=== PATIENT | male | born 1985 | race Hispanic/Latino ===

== ENCOUNTER 2019-08-17 16:59 | Inpatient (IN) | payer OTHER ==
[~2019-08-17] VITALS: Ht 177.8 cm; Wt 97.1 kg
[2019-08-17] MEDS ORDERED: SODIUM CHLORIDE 0.9% 1000ML 1,000 ML IV STA ×2 (17:10→19:24)
[2019-08-17 17:37] LABS: BASOPHILS # (AUTO) 0.1 (0.0-0.1); BASOPHILS % 0.4 % (0.0-1.0); EOSINOPHILS # (AUTO) 0.1 (0.0-0.4); EOSINOPHILS % 0.7 % (0.0-6.0); HEMATOCRIT 38.4 % (38.2-49.6); HEMOGLOBIN 13.4 g/dL (14.0-18.0); LYMPHOCYTES # (AUTO) 1.8 (1.0-3.2); LYMPHOCYTES % 9.8 % (18.0-39.1); MEAN CORPUSCULAR HEMOGLOBIN 28.9 pg (28-32); MEAN CORPUSCULAR HGB CONC 34.9 g/dL (31-35); MEAN CORPUSCULAR VOLUME 82.9 fL (81-99); MONOCYTES # (AUTO) 1.5 (0.2-0.8); MONOCYTES % 8.1 % (4.4-11.3); NEUTROPHILS # (AUTO) 14.4 (2.1-6.9); NEUTROPHILS % 79.9 % (38.7-80.0); PLATELET COUNT 252 x10e3/uL (140-360); RED BLOOD COUNT 4.63 x10e6/uL (4.3-5.7); RED CELL DISTRIBUTION WIDTH 12.7 % (11.7-14.4)
[2019-08-17] MEDS: PIPER-TAZ 3.375 GM 50 ML IV SCH ×2 (17:40→22:45)
[2019-08-17 17:41] LABS: CLARITY,URINE SL CLOUDY (CLEAR)
[2019-08-17 17:42] LABS: BILIRUBIN,URINE NEGATIVE (NEGATIVE); COLOR,URINE STRAW (YELLOW); KETONES,URINE 1+ (NEGATIVE); LEUKOCYTE ESTERASE ,URINE NEGATIVE (NEGATIVE); NITRITE,URINE NEGATIVE (NEGATIVE); PROTEIN,URINE DIPSTICK TRACE (NEGATIVE); URINE UROBILINOGEN 4 mg/dL (0.2 - 1)
[2019-08-17 17:44] LABS: INR 1.03; PROTHROMBIN TIME 14.1 seconds (11.9-14.5)
[2019-08-17 17:45] LABS: PARTIAL THROMBOPLASTIN TIME 34.1 seconds (23.8-35.5)
[2019-08-17 17:52] LABS: ALANINE AMINOTRANSFERASE 93 IU/L (0-55); ALBUMIN 2.9 g/dL (3.5-5.0); ALBUMIN/GLOBULIN RATIO 0.7 (0.8-2.0); ALKALINE PHOSPHATASE 202 IU/L (40-150); ANION GAP 15.8 mmol/L (8-16); BLOOD UREA NITROGEN 12 mg/dL (7-26); BUN/CREATININE RATIO 14 (6-25); CALCIUM 9.5 mg/dL (8.4-10.2); CARBON DIOXIDE 26 mmol/L (22-29); CHLORIDE 96 mmol/L (98-107); CREATININE, SERUM 0.87 mg/dL (0.72-1.25); EST GLOMERULAR FILTRATION RATE > 60 ML/MIN (60-); POTASSIUM 4.8 mmol/L (3.5-5.1); SODIUM 133 mmol/L (136-145)
[2019-08-17 17:54] LABS: GLUCOSE 559 mg/dL (74-118)
[2019-08-17 17:58] LABS: BACTERIA,URINE FEW /HPF; EPITHELIAL CELLS,URINE FEW /LPF; RBC,URINE 0-5 /HPF (0-5)
[2019-08-17] MEDS: VANCOMYCIN 1GM/NS 250 ML 250 ML IV SCH (18:18)
--- NOTE | 2019-08-17 18:36 | Diagnostic Imaging Report ---
Examination: Single AP view of the chest. COMPARISON: None. INDICATION: Abscess on upper back IMPRESSION: 1. Lines and Tubes: None 2. Lungs are grossly clear. No consolidation or effusion. 3. Cardiomediastinal silhouette is normal. Pulmonary vasculature is normal. 4. No acute bony abnormalities. Signed by: Dr. Arthur Casey M.D. on 08/17/2019 6:33 PM
--- NOTE | 2019-08-17 19:11 | NUR ---
No answer from lobby at this time.
[2019-08-17] MEDS ORDERED: MORPHINE SULFATE 2 MG/ML SYR 1ML IV PRN (19:30)
[2019-08-17] MEDS ORDERED: ONDANSETRON HCL INJ 2MG/ML 2ML 2 MG/ML VIAL IV PRN (19:30)
[2019-08-17] MEDS ORDERED: INSULIN LISPRO 100 UNIT/1 ML 3ML VIAL SQ SCH (19:30)
[2019-08-17] MEDS ORDERED: MORPHINE SULFATE INJ 4 MG/ML INJ 1ML IV PRN (19:45)
[2019-08-17] MEDS ORDERED: ACETAMINOPHEN 325 MG TAB PO ONE (19:45)
--- OUTSIDE RECORDS SUMMARY | 2019-08-17 19:57 | XMS REPORT ---
Author Author [facility] Organization [facility] Address Unknown Phone Unavailable Care Team Providers Care Rn Lpn Cna Name Role Phone Wang RITTER Unavailable Unavailable Problems This patient has no known problems. Allergies, Adverse Reactions, Alerts This patient has no known allergies or adverse reactions. Medications This patient has no known medications. Results Test Description Test Time Test Comments Text Results Atomic Results Result Comments CHEST SINGLE (NOT PORTABLE) 2019-08-17 18:33:00 [facility] [address] [place], [place] [address] Patient Name: TATY COLE MR #: [id number] : 1985 Age/Sex: 34/M Req #: [id number] Adm Physician: Ordered by: WERNER RITTER MD Report #: [id number] Location: ER Room/Bed: Procedure: [id number] DX/CHEST SINGLE (NOT PORTABLE) Exam Date: Exam Time: REPORT STATUS: Signed Examination: Single AP view of the chest. COMPARISON: None. INDICATION: Abscess on upper back IMPRESSION: 1. Lines and Tubes: None 2. Lungs are grossly clear. No consolidation or effusion. 3. Cardiomediastinal silhouette is normal. Pulmonary vasculature is normal. 4. No acute bony abnormalities. Signed by: Dr. Natalee Casey M.D. on 08/17/2019 6:33 PM Dictated By: NATALEE CASEY MD 34 Transcribed By: DIDI on 08/17/191832 COPY TO: WERNER RITTER MD
[2019-08-17] MEDS ORDERED: SODIUM CHLORIDE 0.9% 1000ML 1,000 ML IV ONE (20:00)
[2019-08-17] MEDS: SODIUM CHLORIDE 0.9% 1000ML 1,000 ML IV SCH (20:01)
--- NOTE | 2019-08-17 20:28 | NUR ---
New dressing applied to upper back area.
[2019-08-17] MEDS ORDERED: IBUPROFEN 600 MG TAB PO STA (20:52)
[2019-08-17] MEDS: INSULIN GLARGINE 100 UNITS/ML VIAL SQ SCH (21:10)
[2019-08-17] MEDS ORDERED: DEXTROSE 50% SYRINGE 50 ML IV PRN (21:15)
--- NOTE | 2019-08-17 22:00 | NUR ---
Patient received from ED via stretcher as a new admit to room 297. Admitting diagnoses was abscess of back, diabetes new onset. Pt alert and oriented x3. Left upper back with swollen and erythematous abscess with mininal pus drainage and covered with gauze and microfoam tape (C/D/I). Pt denies pain at this time. Ambulatory in room prn. On 2L NC. On IVF (NS at 125ml/hr). On scheduled IV antibiotics. NPO at midnight per MD order. Call flores within reach.
[2019-08-17 22:36] VITALS: BP 131/71
[2019-08-17] MEDS: INSULIN REGULAR, HUMAN 100 UNIT/1 ML 3ML VIAL SQ SCH (22:43)
[2019-08-17 23:00] VITALS: BP 131/71
[2019-08-17 23:20] VITALS: BP 131/63
--- NOTE | 2019-08-17 23:28 | History and Physical ---
HISTORY OF PRESENT ILLNESS: This is a 34-year-old gentleman with a history of left shoulder abscess which started about 2 days prior to admission. The patient did notice some kind of pain and an erythematous area which progressed rapidly into an abscess. The patient was brought here by his had no past medical history. No awareness of his blood sugars being high. PAST MEDICAL HISTORY: Noncontributory. PAST SURGICAL HISTORY: Noncontributory. FAMILY HISTORY: Positive for diabetes in both sides of the family. Father has passed on with history of diabetes and renal failure. Mother with diabetes mellitus currently and is on insulin. SOCIAL HISTORY: No IV drug abuse. Smoking very sparingly and also ETOH very sparingly. No drug abuse. REVIEW OF SYSTEMS: Negative for chest pain. Positive for some blurry vision. Positive for shortness of breath. No nausea. No vomiting. No diarrhea. No constipation. No rectal bleeding. No hematochezia. No hematemesis. The patient also complains of some paresthesias and hyperesthesias in the right lower extremities otherwise normal. PHYSICAL EXAMINATION: GENERAL: The patient is alert and oriented x3. VITAL SIGNS: Blood pressure is elevated, tachycardic. HEENT: Normocephalic, atraumatic. Pupils are reactive to light and accommodation. CVS: S1 and S2, tachy. ABDOMEN: Nontender nondistended. EXTREMITIES: No clubbing, no cyanosis, no edema. Decreased sensation in the right lower extremity. SKIN AND INTEGUMENTARY SYSTEM: The patient has a left-sided shoulder abscess with some drainage present. Abscess size is about 1.5 inches to 2 inches in diameter, tender endurant and also with erythema surrounding it. ASSESSMENT: 1. Mr. León Kelly with new onset diabetes mellitus. 2. Abscess of the left shoulder area. 3. Hypertension. 4. Tachycardia. 5. Cellulitis of the left shoulder. PLAN: Continue with Zosyn and vancomycin. We will continue to monitor the patient. A consult with Dr. Trevizo has been done. He needs surgical debridement of the abscess or incision and drainage. Start the patient on Lantus 15 units insulin sliding scale has been done. The patient has gotten 2 units of fluids right now. We will start him on 125 mL of normal saline. Check his labs in the morning. Further recommendation and clinical course. For right now, we will keep him n.p.o. just in case the patient needs to be taken for I and D. For further information, look in the chart. MD YOEL Allen/MODL /[id number]
[2019-08-18] VITALS (9 sets, daily range): BP systolic 106–142; BP diastolic 61–87
[2019-08-18] MEDS: SODIUM CHLORIDE 0.9% 1000ML 1,000 ML IV SCH ×3 (04:55→20:05)
[2019-08-18] MEDS: PIPER-TAZ 3.375 GM 50 ML IV SCH ×4 (04:56→23:18)
[2019-08-18 06:15] LABS: BASOPHILS # (AUTO) 0.1 (0.0-0.1); BASOPHILS % 0.4 % (0.0-1.0); EOSINOPHILS # (AUTO) 0.3 (0.0-0.4); EOSINOPHILS % 1.5 % (0.0-6.0); HEMATOCRIT 36.5 % (38.2-49.6); HEMOGLOBIN 12.2 g/dL (14.0-18.0); LYMPHOCYTES # (AUTO) 1.2 (1.0-3.2); LYMPHOCYTES % 7.5 % (18.0-39.1); MEAN CORPUSCULAR HEMOGLOBIN 28.7 pg (28-32); MEAN CORPUSCULAR HGB CONC 33.4 g/dL (31-35); MEAN CORPUSCULAR VOLUME 85.9 fL (81-99); MONOCYTES # (AUTO) 1.6 (0.2-0.8); MONOCYTES % 9.6 % (4.4-11.3); PLATELET COUNT 218 x10e3/uL (140-360); RED BLOOD COUNT 4.25 x10e6/uL (4.3-5.7); RED CELL DISTRIBUTION WIDTH 12.9 % (11.7-14.4)
--- NOTE | 2019-08-18 06:15 | NUR ---
Received call back from Dr. Trevizo to notify of new consult order for patient. Reason for consult: Abscess of back.
[2019-08-18] MEDS: VANCOMYCIN 1GM/NS 250 ML 250 ML IV SCH ×2 (06:22→18:30)
[2019-08-18 06:38] LABS: ALANINE AMINOTRANSFERASE 120 IU/L (0-55); ALBUMIN 2.2 g/dL (3.5-5.0); ALBUMIN/GLOBULIN RATIO 0.6 (0.8-2.0); ALKALINE PHOSPHATASE 187 IU/L (40-150); ANION GAP 10.9 mmol/L (8-16); BLOOD UREA NITROGEN 12 mg/dL (7-26); BUN/CREATININE RATIO 18 (6-25); CALCIUM 8.5 mg/dL (8.4-10.2); CARBON DIOXIDE 24 mmol/L (22-29); CHLORIDE 107 mmol/L (98-107); CREATININE, SERUM 0.68 mg/dL (0.72-1.25); EST GLOMERULAR FILTRATION RATE > 60 ML/MIN (60-); GLUCOSE 301 mg/dL (74-118); POTASSIUM 3.9 mmol/L (3.5-5.1); SODIUM 138 mmol/L (136-145)
[2019-08-18 07:01] LABS: CHOL/HDL RATIO 8.9 (3.9-4.7)
[2019-08-18] MEDS: INSULIN REGULAR, HUMAN 100 UNIT/1 ML 3ML VIAL SQ SCH ×4 (07:30→20:10)
--- NOTE | 2019-08-18 07:30 | NUR ---
PT IN BED RESTING NO DISTRESS NOTED,
--- NOTE | 2019-08-18 09:45 | NUR ---
DR BROWN HERE ORDERS WRITTEN,CULTURES SENT TO LAB
--- NOTE | 2019-08-18 11:00 | Consultation ---
DATE OF CONSULTATION: 08/18/2019 CHIEF COMPLAINT: Back pain. HISTORY OF PRESENT ILLNESS: The patient is a 34-year-old male with history of diabetes, complaining of one week history of progressive swelling and redness in the upper back, which the patient thought due to an insect bite. He had some chills and fevers. No vomiting. PAST MEDICAL HISTORY: As mentioned is positive for diabetes. PAST SURGICAL HISTORY: Negative. ALLERGIES: HE HAS NO DRUG ALLERGIES. SOCIAL HABITS: He does not smoke or drink. REVIEW OF SYSTEMS: No chest pain or shortness of breath. PHYSICAL EXAMINATION: VITAL SIGNS: Stable. He is afebrile. T-max 101. GENERAL: He is awake and alert, in moderate discomfort. HEENT: Sclerae anicteric. NECK: Supple. LUNGS: Clear. HEART: Regular rate and rhythm. ABDOMEN: Soft. BACK: Upper back show a large 5 x 5 cm area of erythema, induration, and tenderness consistent with abscess formation. LABORATORY DATA: White cell count 16 and hemoglobin of 12. Creatinine 0.6. ASSESSMENT: Back abscess. PLAN: Incision and drainage of back abscess under anesthesia. Attendant risks discussed. Johnson Trevizo MD DNL/MODL /[id number]
--- NOTE | 2019-08-18 11:50 | NUR ---
PT TRANSPORTED TO OR VIA BED STABLE CONDITION.
[2019-08-18] MEDS ORDERED: INSULIN REGULAR, HUMAN 100 UNIT/1 ML 3ML VIAL ONE (12:22)
[2019-08-18] MEDS ORDERED: BUPIVACAINE HCL 0.5% INJ 30 ML VIAL INJ ONE (13:09)
--- NOTE | 2019-08-18 13:53 | NUR ---
Nutrition Screen Note RD Recommendation for Physician: - When feasible, ADAT to goal of 1800 ADA Plan of Care: RD following, monitoring for tolerance and adequacy Diet education provided 08/18. Nutrition reason for involvement: Dx: new onset DM Primary Diagnose(s): abscess L shoulder, new onset DM PMH: no PMH reported Ht: 70 in Wt: 214.01 lb BMI: 30.7 kg/m2 IBW: [address] Assessment: (08/18) 34 YOM admitted for abscess to L shoulder found to have new onset DM II with no reported PMH. Pt seen today per dx screen. Pt reports good appetite and intake [employer]. Pt reports minor wt loss of 6# within the past month unintentionally, no significant change noted. Pt denies any N/V/C/D. Pt and receptive to diet education at time of visit. Pt and educated on CHO sources, CHO counting and serving sizes, meal planning, foods to avoid, snacks, beverages, and sugar substitutes. All questions and concerns addressed at time of visit. Chart reviewed. Labs and meds reviewed, noted A1C of 13.1 on admit and TG of 322. Pt now on insulin. Pt to remains NPO 2/2 possible I&D of shoulder. Will continue to monitor. Current Diet: NPO Malnutrition Evaluation (08/18/19) The patient does not meet criteria for a specified degree of malnutrition at this time. Will re-evaluate at follow-up as appropriate. Diet Education Needs Assessment: Diet education indicated, pt receptive and education provided 08/18. Learner(s): pt, pt's Barriers: none Cultural/Language Modifications: none Readiness: ready Method: handouts, discussion Topics: DM2 nutrition therapy, CHO sources, CHO counting, meal planning, foods to avoid Understanding/Compliance: fair Diet tolerance: tolerance pending Nutrition Care Level: low Signed: Virginie Rivero RD, LD, [facility]
--- NOTE | 2019-08-18 14:55 | NUR ---
PT RETURNED TO ROOM VIA BED, DENIES PAIN,DRSG TO BACK CD&I
--- NOTE | 2019-08-18 16:30 | NUR ---
GLUCOSE 246 S/S INSULIN GIVEN ORDERED
--- NOTE | 2019-08-18 17:31 | NUR ---
PT UP IN BED PAIN LEVEL 3 ,TIMMY CD&I,
[2019-08-18] MEDS ORDERED: ONDANSETRON HCL INJ 2MG/ML 2ML 2 MG/ML VIAL ONE (18:39)
[2019-08-18] MEDS ORDERED: PROPOFOL IV EMULSION 10 MG/ML 20 ML VIAL ONE (18:39)
[2019-08-18] MEDS ORDERED: SEVOFLURANE INHAL SOLN 250 ML PEN BTL ONE (18:39)
[2019-08-18] MEDS ORDERED: DEXAMETHASONE SOD PHOS INJ 4 MG/ML VIAL ONE (18:39)
[2019-08-18] MEDS ORDERED: LIDOCAINE HCL 2% LOCAL INJ 5 ML SDV VIAL INJ ONE (18:39)
[2019-08-18] MEDS ORDERED: MIDAZOLAM HCL 2 MG/2 ML VIAL ONE (19:10)
[2019-08-18] MEDS ORDERED: FENTANYL CITRATE/PF 100MCG/2 ML INJ ONE (19:10)
--- NOTE | 2019-08-18 19:20 | NUR ---
Patient visited in room during nursing rounds. Patient alert and oriented x3. No distress or discomfort noted. S/P Incision and drainage on left upper back abscess today. Site covered with surgical gauze and microfoam tape appearing clean and dry. On IVF (NS at 125ml/hr) and scheduled IV antibiotics. Call flores within reach. Will monitor pt closely.
--- NOTE | 2019-08-18 19:33 | Operative Report ---
DATE OF PROCEDURE: 08/18/2019 SURGEON: Johnson Trevizo MD PREOPERATIVE DIAGNOSIS: Back abscess. POSTOPERATIVE DIAGNOSIS: Back abscess. OPERATIVE PROCEDURE: I and D back abscess. ANESTHESIA: General. INDICATION: A 34-year-old male with 1-week history of back swelling and redness consistent with abscess formation. The patient consented for incision and drainage. Attendant risks discussed. DESCRIPTION OF PROCEDURE: The patient was brought to the OR intubated. He was repositioned to the right lateral with the left side up. Upper back was prepped with alcohol and draped in sterile fashion. A cruciate incision was made 4 x 4 cm in size extending deep into the abscess cavity and thick purulent material was evacuated and swab specimen obtained for culture and sensitivity. Digital exploration of the cavity carried out to break up all loculations, which was then irrigated with saline solution. The wound was then packed with iodoform gauze. Hemostasis achieved. Dressing applied. The patient tolerated the procedure well and was extubated. BLOOD LOSS: 5 mL. Johnson Trevizo MD DNL/MODL /[id number]
[2019-08-18] MEDS: ACETAMINOPHEN 325 MG TAB PO PRN ×2 (19:45)
[2019-08-18] MEDS: INSULIN GLARGINE 100 UNITS/ML VIAL SQ SCH (20:10)
--- NOTE | 2019-08-18 20:54 | Progress Note ---
DATE: SUBJECTIVE: The patient is a 34-year-old male with new onset diabetes mellitus with high glucose and abscess in the right shoulder, came in with sepsis. The patient is currently having status post incision and drainage. Pain is controlled. The patient is also on insulin with sugars running in the 200s. OBJECTIVE: VITAL SIGNS: Temperature is 99.6, T-max of 101.1 yesterday at 8:24 in the morning. The patient's pulse is 128, respiration of 20, blood pressure is 135/81, pulse ox of 96%. HEENT: Normocephalic, atraumatic. CVS: S1 and S2 normal. Regular rate and rhythm. ABDOMEN: Nontender, nondistended. BACK: Left shoulder area packed and also has pressure dressing on it. EXTREMITIES: No clubbing, no cyanosis, no edema. [place]: [place] [address] today, hemoglobin 12.2, hematocrit of 36.5. Chemistry; sodium of 138, potassium 3.9, glucose is 301. ALT and AST of 87 and 120. Glucoses have been running in the 250 range. A1c was 13.1. ASSESSMENT: Mr. Sin Wing with: 1. Uncontrolled diabetes mellitus. 2. Abscess of the back, left shoulder area. 3. Hypertension. 4. Tachycardia. 5. Cellulitis. 6. Sepsis. PLAN: Continue on Zosyn at this time. The patient has already had surgery done by Dr. Trevizo and the patient's culture has been sent. Continue to monitor the patient. Insulin Lantus 15 units twice a day has been started and also sliding scale has been started. Further recommendation per clinical course. We will follow up with the cultures. Blood cultures show no growth in 24 hours. Shravan Linares MD ASJ/MODL /[id number]
--- NOTE | 2019-08-18 21:35 | NUR ---
Called and spoke with Dr. Linares via phone and informed patient still running fever (temp = 101.8 F) even after receiving Tylenol. aware and ordered Motrin 600mg Q6hr prn.
[2019-08-18] MEDS ORDERED: IBUPROFEN 600 MG TAB PO PRN (21:45)
[2019-08-19] VITALS (8 sets, daily range): BP systolic 113–147; BP diastolic 70–96
[2019-08-19] MEDS: SODIUM CHLORIDE 0.9% 1000ML 1,000 ML IV SCH ×2 (04:43→17:29)
[2019-08-19] MEDS: PIPER-TAZ 3.375 GM 50 ML IV SCH ×4 (04:48→22:57)
[2019-08-19] MEDS: VANCOMYCIN 1GM/NS 250 ML 250 ML IV SCH ×2 (05:59→18:00)
[2019-08-19 06:15] LABS: BASOPHILS # (AUTO) 0.1 (0.0-0.1); BASOPHILS % 0.5 % (0.0-1.0); EOSINOPHILS # (AUTO) 0.3 (0.0-0.4); EOSINOPHILS % 1.7 % (0.0-6.0); HEMATOCRIT 34.7 % (38.2-49.6); HEMOGLOBIN 11.5 g/dL (14.0-18.0); LYMPHOCYTES # (AUTO) 1.5 (1.0-3.2); LYMPHOCYTES % 9.1 % (18.0-39.1); MEAN CORPUSCULAR HEMOGLOBIN 28.3 pg (28-32); MEAN CORPUSCULAR HGB CONC 33.1 g/dL (31-35); MEAN CORPUSCULAR VOLUME 85.5 fL (81-99); MONOCYTES # (AUTO) 1.3 (0.2-0.8); MONOCYTES % 7.9 % (4.4-11.3); NEUTROPHILS # (AUTO) 12.9 (2.1-6.9); NEUTROPHILS % 79.3 % (38.7-80.0); PLATELET COUNT 255 x10e3/uL (140-360); RED BLOOD COUNT 4.06 x10e6/uL (4.3-5.7); RED CELL DISTRIBUTION WIDTH 13.2 % (11.7-14.4)
--- NOTE | 2019-08-19 06:56 | NUR ---
RECEIVED BEDSIDE SHIFT REPORT FROM OFF GOING NURSE. PATIENT IS RESTING IN BED. NO ACUTE DISTRESS NOTED. CALL LIGHT WITHIN REACH. BED IN THE LOWEST POSITION.
[2019-08-19 06:57] LABS: ANION GAP 11.9 mmol/L (8-16); BLOOD UREA NITROGEN 11 mg/dL (7-26); BUN/CREATININE RATIO 17 (6-25); CALCIUM 8.6 mg/dL (8.4-10.2); CARBON DIOXIDE 23 mmol/L (22-29); CHLORIDE 106 mmol/L (98-107); CREATININE, SERUM 0.65 mg/dL (0.72-1.25); EST GLOMERULAR FILTRATION RATE > 60 ML/MIN (60-); GLUCOSE 238 mg/dL (74-118); POTASSIUM 3.9 mmol/L (3.5-5.1); SODIUM 137 mmol/L (136-145)
[2019-08-19] MEDS: INSULIN REGULAR, HUMAN 100 UNIT/1 ML 3ML VIAL SQ SCH ×4 (08:19→20:15)
--- NOTE | 2019-08-19 09:36 | Progress Note ---
DATE: SUBJECTIVE: The patient is a 34-year-old gentleman, who came in with a left shoulder abscess or back abscess, status post incision and drainage. Currently on Zosyn and vancomycin. The patient has no chest pain or shortness of breath. No nausea, vomiting, or diarrhea. Pain continues. OBJECTIVE: VITAL SIGNS: Temperature is 98, pulse of 98, T-max of 102, respirations of 18, pulse oximeter of 96%. HEENT: Normocephalic and atraumatic. Pupils are equal, reactive to light and accommodation. CVS: S1 and S2 normal. Regular rate and rhythm. ABDOMEN: Nontender, nondistended. LUNGS: Clear to auscultation. BACK: Packed. EXTREMITIES: No clubbing. No cyanosis. No edema. MICROBIOLOGY: Gram stain wound culture is showing gram-positive cocci in pairs. Blood cultures are otherwise negative. IMAGING STUDIES: Chest x-ray was normal on . ASSESSMENT: Mr. Wing with: 1. Uncontrolled diabetes mellitus. 2. Abscess of the back with gram-positive cocci, possibly Staph. 3. Hypertension. 4. Tachycardia. 5. Cellulitis. 6. Sepsis. PLAN: ID consult with Dr. Ricci, Dr. Trevizo is on consult, probably will need further studies, especially echocardiogram. Continue to monitor the patient. Vancomycin trough to be done. Further recommendation as per clinical course. We will continue to monitor the patient. MD YOEL Allen/YANNICKL /[id number]
[2019-08-19] MEDS: ACETAMINOPHEN 325 MG TAB PO PRN ×2 (09:40→20:13)
--- NOTE | 2019-08-19 19:20 | NUR ---
Patient visited in room during nursing rounds. Patient alert and oriented x3. No distress or discomfort noted. S/P Incision and drainage on left upper back abscess yesterday. Site covered with surgical gauze and microfoam tape appearing clean and dry. On IVF (NS at 125ml/hr) and scheduled IV antibiotics. Call flores within reach. Will monitor pt closely.
--- NOTE | 2019-08-19 19:38 | NUR ---
Bedside shift report given to oncoming nurse. Patient is resting in bed, no acute distress noted. Family member at bedside. Call light within reach. Bed in the lowest position.
--- NOTE | 2019-08-19 19:54 | NUR ---
Dr. Ricci came and saw pt in room. MD aware of patient condition. MD just gave order to check Vanc trough prior to every 4 doses.
[2019-08-19] MEDS: INSULIN GLARGINE 100 UNITS/ML VIAL SQ SCH (20:15)
[2019-08-20] VITALS (8 sets, daily range): BP systolic 121–142; BP diastolic 70–96
--- NOTE | 2019-08-20 03:14 | Consultation ---
DATE OF CONSULTATION: REASON FOR CONSULTATION: Abscess of the back. HISTORY OF PRESENT ILLNESS: This patient is a very pleasant 34-year-old with history of diabetes mellitus and history of obesity, comes in with an abscess on his back started few days ago. The patient does have redness and swelling. The patient came to emergency room. He was seen by surgery already had I and D, I was asked to see him. PAST MEDICAL HISTORY: Diabetes mellitus with obesity. PAST SURGICAL HISTORY: Denies. ALLERGIES: NKA. SOCIAL HISTORY: There is no smoking, drug abuse, or alcohol abuse. FAMILY HISTORY: Significant for diabetes mellitus. PAST MEDICAL HISTORY: This diabetes mellitus was diagnosed with this visit. The patient was not aware of that before he came here. LABORATORY DATA: His wound culture is showing gram positive, showing Staphylococcus aureus, sensitivity is still pending. His blood cultures are negative. His laboratory data when he first came, his white count was 17.99, hemoglobin 13 and 38. Sodium 137, potassium 3.9 with creatinine of 0.65. He is currently on vancomycin and Zosyn. PHYSICAL EXAMINATION: GENERAL: He is currently alert and oriented, does not seem in acute distress. VITAL SIGNS: Stable, currently afebrile. HEENT: Not icteric. NECK: Supple. CHEST: Clear bilateral. HEART: S1 and S2. No S3, S4, or murmur. ABDOMEN: Soft. Bowel sounds present tenderness. EXTREMITIES: No edema. IMPRESSION AND PLAN: 1. Abscess of the back Staphylococcus aureus. Agree with vancomycin and agree with Zosyn. Obtain vancomycin trough. 2. Diabetes mellitus. 3. Obesity. 4. Continue with local care. Recheck CBC. We will keep on IV antibiotic till we normalize. Further recommendation depending on his clinical progress. 5. Recheck CBC. Recheck Chem panel. Follow vancomycin trough. Follow up with the cultures. MD JOSE ROBERTO Yang/ISAC /[id number]
[2019-08-20] MEDS: PIPER-TAZ 3.375 GM 50 ML IV SCH ×2 (05:50→10:30)
[2019-08-20] MEDS: SODIUM CHLORIDE 0.9% 1000ML 1,000 ML IV SCH (05:50)
[2019-08-20 06:17] LABS: BASOPHILS # (AUTO) 0.1 (0.0-0.1); BASOPHILS % 0.6 % (0.0-1.0); EOSINOPHILS # (AUTO) 0.4 (0.0-0.4); EOSINOPHILS % 2.9 % (0.0-6.0); HEMATOCRIT 31.9 % (38.2-49.6); HEMOGLOBIN 10.6 g/dL (14.0-18.0); LYMPHOCYTES # (AUTO) 1.9 (1.0-3.2); LYMPHOCYTES % 15.2 % (18.0-39.1); MEAN CORPUSCULAR HEMOGLOBIN 28.3 pg (28-32); MEAN CORPUSCULAR HGB CONC 33.2 g/dL (31-35); MEAN CORPUSCULAR VOLUME 85.3 fL (81-99); MONOCYTES # (AUTO) 0.9 (0.2-0.8); MONOCYTES % 7.6 % (4.4-11.3); NEUTROPHILS # (AUTO) 8.7 (2.1-6.9); NEUTROPHILS % 70.8 % (38.7-80.0); PLATELET COUNT 273 x10e3/uL (140-360); RED BLOOD COUNT 3.74 x10e6/uL (4.3-5.7); RED CELL DISTRIBUTION WIDTH 13.2 % (11.7-14.4)
[2019-08-20 06:45] LABS: ANION GAP 9.7 mmol/L (8-16); BLOOD UREA NITROGEN 10 mg/dL (7-26); BUN/CREATININE RATIO 17 (6-25); CALCIUM 8.3 mg/dL (8.4-10.2); CARBON DIOXIDE 25 mmol/L (22-29); CHLORIDE 104 mmol/L (98-107); EST GLOMERULAR FILTRATION RATE > 60 ML/MIN (60-); GLUCOSE 214 mg/dL (74-118); POTASSIUM 3.7 mmol/L (3.5-5.1); SODIUM 135 mmol/L (136-145)
[2019-08-20] MEDS: VANCOMYCIN 1GM/NS 250 ML 250 ML IV SCH (06:51)
--- NOTE | 2019-08-20 06:58 | NUR ---
RECEIVED BEDSIDE SHIFT REPORT FROM OFF GOING NURSE. PATIENT IS RESTING IN BED, NO ACUTE DISTRESS NOTED. CALL LIGHT WITHIN REACH. BED IN THE LOWEST POSITION.
[2019-08-20] MEDS: INSULIN REGULAR, HUMAN 100 UNIT/1 ML 3ML VIAL SQ SCH ×4 (08:01→21:00)
[2019-08-20] MEDS: CLINDAMYCIN 600MG / 50ML 50 ML IV SCH (17:25)
--- NOTE | 2019-08-20 17:55 | Progress Note ---
DATE: SUBJECTIVE: Mr. Traore is doing better. There is no new complaint. The wound on his back is healing. There is minimal drainage. His cultures grew Staphylococcus aureus which seems to be MSSA. PHYSICAL EXAMINATION: Otherwise alert, oriented, does not seem to be in acute distress. IMPRESSION: 1. Abscess, MSSA. 2. Diabetes, newly diagnosed. RECOMMENDATION: We will discontinue vancomycin. We will discontinue Zosyn. We will put him on clindamycin, can discharge home with oral clindamycin 300 mg p.o. t.i.d. for 2 weeks in addition to wound care. Diabetes controlled. He is still having issues with his diabetes. Discussed with the patient. Discussed with the family. Discussed with the medical team. MD JOSE ROBERTO Yang/MODKip /[id number]
--- NOTE | 2019-08-20 18:05 | Progress Note ---
DATE: SUBJECTIVE: The patient is a 34-year-old gentleman, who came in with abscess in the left shoulder area. The patient is status post incision and drainage. The patient had some fevers yesterday, feeling fatigued. No chest pain. No shortness of breath. LABORATORY DATA: The patient's white count is 12.21, hemoglobin of 10.6, hematocrit of 31.9, platelets of 273, neutrophil count of 70. Chemistries; sodium 135, potassium 3.7, creatinine 0.60. PHYSICAL EXAMINATION: VITAL SIGNS: Normal. Afebrile, T-max of 99.2, 08/20/2019. HEENT: Normocephalic and atraumatic. Pupils are reactive to light and accommodation. CVS: S1 and S2 normal. Regular rate and rhythm. ABDOMEN: Nontender and nondistended. Shoulder area with bandage. EXTREMITIES: No clubbing, no cyanosis, no edema. ASSESSMENT: Mr. León Vogt with: 1. Abscess of the back Staphylococcus aureus. Continue with vancomycin and Zosyn. 2. Diabetes mellitus. 3. Obesity. 4. New onset diabetes. 5. Fever. PLAN: Local care, IV antibiotics. Continue to monitor the patient. Further recommendation per clinical course. MD YOEL Allen/ISAC /[id number]
--- NOTE | 2019-08-20 19:05 | NUR ---
Bedside shift report given to oncoming nurse. Patient is sitting up in chair. No acute distress noted. Significant other at bedside. Call light within reach. Bed in the lowest position.
[2019-08-20] MEDS: INSULIN GLARGINE 100 UNITS/ML VIAL SQ SCH (23:12)
[2019-08-21] VITALS (8 sets, daily range): BP systolic 133–150; BP diastolic 79–100
[2019-08-21] MEDS: CLINDAMYCIN 600MG / 50ML 50 ML IV SCH ×4 (06:46→17:52)
[2019-08-21] MEDS: INSULIN REGULAR, HUMAN 100 UNIT/1 ML 3ML VIAL SQ SCH ×4 (07:30→21:20)
[2019-08-21] MEDS: ACETAMINOPHEN 325 MG TAB PO PRN (10:46)
[2019-08-21] MEDS: INSULIN GLARGINE 100 UNITS/ML VIAL SQ SCH (17:00)
--- NOTE | 2019-08-21 19:18 | NUR ---
PATIENT SITING IN RECLINER- IN STABLE CONDITION WITH NO S/S OF RESPIRATORY DISTRESS. NO PAIN VOICED. FAMILY MEMBERS PRESENT IN ROOM. PATIENT REQUESTED DRESSING TO BE CHANGED AFTER HE TAKES A SHOWER THIS EVENING- NIGHT NURSE INFORMED. CURRENT DRESSING IS DRY AND INTACT- NO DRAINAGE NOTED. CALL LIGHT IS WITHIN REACH, PATIENT INSTRUCTED TO CALL FOR ASSISTANCE NEEDED. BEDSIDE REPORT GIVEN TO ONCOMING NURSE.
--- NOTE | 2019-08-21 19:57 | Progress Note ---
DATE: SUBJECTIVE: The patient is a 34-year-old gentleman with a history of cellulitis and abscess of the posterior shoulder. The patient is doing well. Blood pressures are running stable. Sugars are running in the 250s to 300. PHYSICAL EXAMINATION: VITAL SIGNS: Temperature 98, pulse of 83, respirations of 20, blood pressure is 133/82, pulse oximetry of 95%. HEENT: Normocephalic and atraumatic. Pupils reactive to light and accommodation. CVS: S1 and S2 normal. Regular rate and rhythm. ABDOMEN: Nontender, nondistended. EXTREMITIES: Shoulder, status post I and D with drainage in the area. LABORATORY VALUES: White count is down to 12.21. Chemistries; sugar is in the 200s. No imaging studies done. MICROBIOLOGY: Staphylococcus aureus sensitive to vancomycin. ASSESSMENT: Mr. Sin Wing with: 1. Diabetes mellitus, uncontrolled. 2. New onset. 3. Abscess of the posterior shoulder. PLAN: Continue on antibiotic. The patient's wound culture grew Staph. Continue monitoring the patient. The patient needs IV antibiotics as outpatient. We will go ahead and increase the Lantus to 20 units twice a day and also insulin sliding scale. The patient does have neuropathy. We will continue monitoring this. Probable we will give him gabapentin on discharge. Further recommendation per clinical course. MD YOEL Allen/MODL /[id number]
[2019-08-22] VITALS (8 sets, daily range): BP systolic 138–169; BP diastolic 86–101
[2019-08-22] MEDS: CLINDAMYCIN 600MG / 50ML 50 ML IV SCH ×4 (06:45→16:40)
--- NOTE | 2019-08-22 06:45 | NUR ---
patient condition throughout the night was stable, patient endorsed to next shift for continuity of care.
[2019-08-22 06:50] LABS: BASOPHILS # (AUTO) 0.1 (0.0-0.1); BASOPHILS % 0.9 % (0.0-1.0); EOSINOPHILS # (AUTO) 0.5 (0.0-0.4); EOSINOPHILS % 5.6 % (0.0-6.0); HEMATOCRIT 36.3 % (38.2-49.6); LYMPHOCYTES % 20.7 % (18.0-39.1); MEAN CORPUSCULAR HEMOGLOBIN 28.3 pg (28-32); MEAN CORPUSCULAR HGB CONC 33.1 g/dL (31-35); MEAN CORPUSCULAR VOLUME 85.6 fL (81-99); MONOCYTES # (AUTO) 0.7 (0.2-0.8); MONOCYTES % 7.1 % (4.4-11.3); NEUTROPHILS # (AUTO) 5.7 (2.1-6.9); NEUTROPHILS % 60.2 % (38.7-80.0); PLATELET COUNT 363 x10e3/uL (140-360); RED BLOOD COUNT 4.24 x10e6/uL (4.3-5.7)
[2019-08-22 07:04] LABS: ANION GAP 12.5 mmol/L (8-16); BLOOD UREA NITROGEN 15 mg/dL (7-26); BUN/CREATININE RATIO 19 (6-25); CALCIUM 9.5 mg/dL (8.4-10.2); CARBON DIOXIDE 29 mmol/L (22-29); CHLORIDE 102 mmol/L (98-107); CREATININE, SERUM 0.78 mg/dL (0.72-1.25); EST GLOMERULAR FILTRATION RATE > 60 ML/MIN (60-); GLUCOSE 220 mg/dL (74-118); POTASSIUM 4.5 mmol/L (3.5-5.1); SODIUM 139 mmol/L (136-145)
[2019-08-22] MEDS: LOSARTAN POTASSIUM 100 MG TAB PO SCH (08:43)
[2019-08-22] MEDS: INSULIN GLARGINE 100 UNITS/ML VIAL SQ SCH ×2 (08:44→16:40)
[2019-08-22] MEDS: INSULIN REGULAR, HUMAN 100 UNIT/1 ML 3ML VIAL SQ SCH ×4 (08:45→21:00)
--- NOTE | 2019-08-22 09:59 | Progress Note ---
DATE: SUBJECTIVE: The patient is a 34-year-old gentleman, who came in with a back abscess in the scapular area. Currently, the patient has quite a bit of drainage, also complaints of right upper extremity pain where the IV line is. No chest pain. No shortness of breath. Still has some chills and also continues to have some night sweats, which are profuse. OBJECTIVE: VITAL SIGNS: Temperature 98.0, has been afebrile, pulse of 70, respirations of 20, and blood pressure is 160/96. HEENT: Normocephalic and atraumatic. Pupils are reactive to light and accommodation. CVS: S1 and S2 normal. Regular rate and rhythm. ABDOMEN: Nontender, nondistended. BACK: Drainage with pus discharging from the wound. EXTREMITIES: No clubbing. No cyanosis. Positive for edema. MICROBIOLOGY: Staph aureus, sensitive to Augmentin and vancomycin, pansensitive to all antibiotics. LABORATORY STUDIES: White count is 9.43, hemoglobin of 12, hematocrit of 36.3, neutrophil count is down. Blood sugars are running in the 200s to 170s. Coags are normal. ASSESSMENT: Mr. Sin Wing with: 1. Staph coccus aureus growth in the back, status post I and D. 2. Newly diagnosed uncontrolled diabetes mellitus. Continue Lantus. 3. Neuropathy. 4. Edema. PLAN: Start the patient on statin daily, atorvastatin 10 mg, also start the patient on losartan 50 mg for his blood pressure control. Further recommendation per clinical course. Possible discharge tomorrow and also depending on ID and Surgery. MD YOEL Allen/MODL /[id number]
[2019-08-22] MEDS: APIXABAN 5 MG TABLET PO SCH ×2 (10:30→16:39)
[2019-08-22] MEDS: COLLAGENASE 5 GM TUBE TOP SCH (16:40)
--- NOTE | 2019-08-22 19:20 | NUR ---
Bedside shift report completed with morning nurse. Pt alert to name, lying in bed HOB 30. Denies pain at this time. Family at bedside. Call light within reach. Will continue to monitor.
[2019-08-22] MEDS ORDERED: ATORVASTATIN 10 MG TAB PO SCH (21:00)
[2019-08-23] MEDS: CLINDAMYCIN 600MG / 50ML 50 ML IV SCH ×3 (00:10→12:37)
[2019-08-23 00:16] VITALS: BP 135/80
[2019-08-23 04:40] VITALS: BP 126/75
[2019-08-23] MEDS: INSULIN REGULAR, HUMAN 100 UNIT/1 ML 3ML VIAL SQ SCH ×2 (07:30→12:37)
[2019-08-23 08:00] VITALS: BP 138/91
--- NOTE | 2019-08-23 08:03 | Progress Note ---
DATE: SUBJECTIVE: The patient came with abscess on the back on the left side shoulder area. The patient is status post I and D, grew Staphylococcus. The patient is sensitive to clindamycin. We will continue on clindamycin. Currently on apixaban for 2 weeks for right upper extremity clot. No chest pain. No shortness of breath. The patient is doing better. Afebrile. OBJECTIVE: VITAL SIGNS: Temperature afebrile at 96.8, pulse of 66, respiratory rate of 16, blood pressure is 126/75, pulse oximetry of 98%. HEENT: Normocephalic and atraumatic. Pupils reactive to light and accommodation. CVS: S1 and S2 normal. Regular rate and rhythm. ABDOMEN: Nontender, nondistended. BACK: Clean wound. EXTREMITIES: No clubbing. No cyanosis. Positive for trace edema. ASSESSMENT: Mr. Wing with: 1. Abscess. 2. Uncontrolled diabetes mellitus. 3. Staphylococcus aureus. 4. Neuropathy. 5. Edema. PLAN: The patient started on atorvastatin 10 mg and losartan 50 mg for blood pressure control. We will be sending him on clindamycin, Lantus, and Humalog. Further recommendation per clinical course. The patient is to follow up with his primary care physician as an outpatient. This is to be done in the next week timeframe. MD YOEL Allen/MODL /[id number]
[2019-08-23] MEDS: COLLAGENASE 5 GM TUBE TOP SCH (09:00)
[2019-08-23] MEDS: LOSARTAN POTASSIUM 100 MG TAB PO SCH (09:10)
[2019-08-23] MEDS: APIXABAN 5 MG TABLET PO SCH (09:10)
[2019-08-23] MEDS: INSULIN GLARGINE 100 UNITS/ML VIAL SQ SCH (09:11)
[2019-08-23 12:00] VITALS: BP 123/82
[2019-08-23] MEDS ORDERED: CLINDAMYCIN HC150 MG PO (13:49)
[2019-08-23] MEDS ORDERED: LANTUS 3ML100 UNITS/ SQ (13:50)
[2019-08-23] MEDS ORDERED: METFORMIN HCL500 MG PO (13:50)
[2019-08-23] MEDS ORDERED: LOSARTAN POTASS25 MG PO (13:51)
[2019-08-23] MEDS ORDERED: ATORVASTATIN CA10 MG PO (13:51)
[2019-08-23] MEDS ORDERED: ELIQUIS5 M1 PO (13:53)
--- NOTE | 2019-08-23 19:32 | NUR ---
Pt discharged home at this time. Pt education was done on inulin administration and pt and family were able to correctly demonstrate insulin administration. Pt verbalized understanding of all follow up and discharge instructions. Pt and family were taught wound care and verbalized understanding of proper wound care.
== END 2019-08-23 14:27 | disposition home or self-care (01) | DRG 854 ==
LOC: ER 16:59 → ERHOLD 19:26 → MED/SURG3 22:00
PROVIDERS: ADMIT Family Medicine; ATTEND Family Medicine
PROC: 0J970ZZ Drainage of Back Subcutaneous Tissue and Fascia, Open Approach (ICD-10-PCS; principal; 2019-08-18 13:00)
DX: A41.02 Sepsis due to Methicillin resistant Staphylococcus aureus (principal); L02.412 Cutaneous abscess of left axilla; L03.90 Cellulitis, unspecified; I10 Essential (primary) hypertension; E66.9 Obesity, unspecified; Z68.30 Body mass index [BMI] 30.0-30.9, adult; E11.40 Type 2 diabetes mellitus with diabetic neuropathy, unspecified; E11.649 Type 2 diabetes mellitus with hypoglycemia without coma; Z79.4 Long term (current) use of insulin
CPT/HCPCS: 36415; 71045; 80048; 80053; 80061; 80202; 81001; 82948; 83036; 83605; 85025; 85610; 85730; 87040; 87071; 87075; 87086; 87186; 87205; 93971; 96372; 99284; J1100; J1815; J1817; J2001; J2250; J2270; J2405; J2543; J3010; J3370; J7030

== ENCOUNTER 2021-11-12 13:37 | Emergency (ER) | payer BC, OTHER ==
[~2021-11-12] VITALS: Ht 177.8 cm; Wt 97.1 kg
[~2021-11-12 13:37] MED LIST: ATORVASTATIN CA10 MG PO; CLINDAMYCIN HC150 MG PO; ELIQUIS5 M1 PO; LANTUS 3ML100 UNITS/ SQ; LOSARTAN POTASS25 MG PO; METFORMIN HCL500 MG PO
[2021-11-12] MEDS ORDERED: HYDRALAZINE HCL 20 MG/ML VIAL IV STA (13:44)
[2021-11-12 14:01] LABS: BASOPHILS % 0.6 % (0.0-1.0); EOSINOPHILS # (AUTO) 0.4 (0.0-0.4); HEMATOCRIT 41.1 % (38.2-49.6); HEMOGLOBIN 18.2 g/dL (14.0-18.0); LYMPHOCYTES % 28.8 % (18.0-39.1); MEAN CORPUSCULAR HEMOGLOBIN 37.5 pg (28-32); MEAN CORPUSCULAR HGB CONC 44.3 g/dL (31-35); MEAN CORPUSCULAR VOLUME 84.7 fL (81-99); MONOCYTES # (AUTO) 0.2 (0.2-0.8); MONOCYTES % 3.4 % (4.4-11.3); NEUTROPHILS # (AUTO) 4.3 (2.1-6.9); NEUTROPHILS % 60.6 % (38.7-80.0); PLATELET COUNT 186 x10e3/uL (140-360); RED BLOOD COUNT 4.85 x10e6/uL (4.3-5.7); RED CELL DISTRIBUTION WIDTH 13.3 % (11.7-14.4)
[2021-11-12 14:15] LABS: INR 0.81
[2021-11-12 14:26] LABS: ALBUMIN/GLOBULIN RATIO 0.4 (0.8-2.0); ANION GAP 19.6 mmol/L (8-16); CALCIUM 10.2 mg/dL (8.4-10.2); CARBON DIOXIDE 16 mmol/L (22-29); CHLORIDE 94 mmol/L (98-107); POTASSIUM 4.6 mmol/L (3.5-5.1); SODIUM 125 mmol/L (136-145)
[2021-11-12 14:42] LABS: CLARITY,URINE HAZY (CLEAR); COLOR,URINE YELLOW (YELLOW); LEUKOCYTE ESTERASE ,URINE NEGATIVE (NEGATIVE)
[2021-11-12 14:43] LABS: KETONES,URINE 1+ (NEGATIVE); NITRITE,URINE NEGATIVE (NEGATIVE); PROTEIN,URINE DIPSTICK NEGATIVE (NEGATIVE); URINE UROBILINOGEN 0.2 mg/dL (0.2 - 1)
[2021-11-12 14:58] LABS: BACTERIA,URINE FEW /HPF; EPITHELIAL CELLS,URINE FEW /LPF; RBC,URINE 0-5 /HPF (0-5); WBC,URINE (MAN) 0-5 /HPF (0-5)
[2021-11-12 15:17] LABS: ALANINE AMINOTRANSFERASE < 30 IU/L (0-55); BLOOD UREA NITROGEN 17 mg/dL (7-26)
[2021-11-12 15:24] LABS: GLUCOSE 533 mg/dL (74-118)
[2021-11-12] MEDS ORDERED: SODIUM CHLORIDE 0.9% 1000ML 1,000 ML IV STA (15:24)
[2021-11-12] MEDS ORDERED: INSULIN REGULAR, HUMAN 100 UNIT/1 ML IV ONE (15:30)
[2021-11-12] MEDS ORDERED: LISINOPRIL20 MG PO (16:49)
[2021-11-12] MEDS ORDERED: METFORMIN HCL500 MG PO (16:49)
[2021-11-12] MEDS ORDERED: ACYCLOVIR800 MG PO (16:49)
[2021-11-12 18:27] LABS: BUN/CREATININE RATIO 18 (6-25); CREATININE, SERUM 0.97 mg/dL (0.72-1.25); EST GLOMERULAR FILTRATION RATE 89 ML/MIN (60-)
[2021-11-12] MEDS ORDERED: IOPAMIDOL 370 MG/ML 100 ML INFUS..BTL INJ ONE (18:27)
[2021-11-12 18:28] LABS: ALKALINE PHOSPHATASE 76 IU/L (40-150); CREATINE KINASE 80 IU/L (30-200)
== END 2021-11-12 17:56 | disposition home or self-care (01) ==
LOC: ER 13:45
DX: G51.0 Bell's palsy (principal)
CPT/HCPCS: 36415; 36600; 70450; 70496; 70498; 71045; 80053; 81001; 82550; 82553; 82948; 83880; 84484; 85025; 85610; 85730; 93005; 99284; J0360; J1817; J7030; Q9967